=== PATIENT | male | born 1990 | race African-American/Black ===

== ENCOUNTER 2016-12-28 22:20 | Emergency (ER) | payer OTHER ==
[~2016-12-28 22:20] MED LIST: BACTRIM DS TABL1 TA1 PO; CALCIUM + VITAM1 TAB PO; CELLCEPT250 MG; ITRACONAZOLE100 MG PO; K-DUR20 ME1 PO; NAPROSYN250 M1 PO; NILSTAT; PERIDEX480 ML; PREDNISONE5 M1 PO; TACROLIMUS0.5 MG; VALCYTE450 MG PO
== END 2016-12-28 23:58 | disposition home or self-care (01) ==
LOC: CED 22:20
DX: K61.1 Rectal abscess (principal); F17.200 Nicotine dependence, unspecified, uncomplicated; Z94.1 Heart transplant status; Z88.8 Allergy status to other drugs, medicaments and biological substances
CPT/HCPCS: 10060; 96372; 99283; J2270

== ENCOUNTER 2017-01-04 22:33 | Emergency (ER) | payer OTHER ==
--- NOTE | ~2017-01-04 | US85 ---
[facility] A Service of [facility] RADIOLOGY TEXT RESULTS PATIENT: CLARICE HAWKINS LOCATION: [facility] : 90 UNIT #: [id number] AGE: [address]: Kaitlin Garcia MD SEX: M ORDER DR: [id number] [facility] [place], [place] [address] [id number] E MR#: [id number] Acc #: [id number] NAME: CLARICE HAWKINS : 1990 SEX: M STUDY DATE/TIME: 01/04/2017 21:25 UNIT: [place] ROOM: STUDY DESCRIPTION: [facility] Attending Physician: Kaitlin Garcia M.D. Ordering Physician: Kaitlin Garcia M.D. Primary Care Physician: Joseph Ramirez M.D. MEDICAL IMAGING REPORT This report is preliminary unless electronic signature is present EXAM Right lower extremity venous duplex. DATE OF EXAM 01/04/2017 HISTORY Right lower extremity pain in distal thigh and calf for one month. Evaluate for deep vein thrombosis. TECHNIQUE Venous ultrasound examination of the right lower extremity was performed using grayscale, spectral Doppler and color flow Doppler imaging. FINDINGS The examination is negative. There is no evidence of right lower extremity deep venous thrombus from the groin to the lower calf. Visualized greater saphenous vein is also patent. IMPRESSION Negative examination. No evidence of right lower extremity DVT. Dictated by... Andre Evans M.D. THIS IS AN ELECTRONICALLY VERIFIED REPORT Andre Evans M.D. at 01/05/2017 2:15 PM BAILEE/melinda [facility] A Service [facility] RADIOLOGY TEXT RESULTS PATIENT: CLARICE HAWKINS LOCATION: [place] : 90 UNIT #: [id number] AGE: [address]: Kaitlin Garcia MD SEX: M ORDER DR: TD: 01/04/2017 23:25 JOB #: [id number] MEDICAL IMAGING REPORT Page 1 of 1 COPY
--- NOTE | ~2017-01-04 | EKG ---
PATIENT: CLARICE HAWKINS UNIT #: [id number] Ventricular Rate: 98 BPM Atrial Rate: 98 BPM P-R Interval: 116 ms QRS Duration: 86 ms Q-T Interval: 448 ms QTC Calculation(Bezet): 571 ms P [place]: 93 degrees Calculated R [place]: 79 degrees Calculated T [place]: 87 degrees Diagnosis Line: Normal sinus rhythm Diagnosis Line: Nonspecific T wave abnormality Diagnosis Line: Borderline ECG Diagnosis Line: When compared with ECG of 29-MAR-2012 23:00, Diagnosis Line: Nonspecific T wave abnormality, worse in Inferior Diagnosis Line: leads Diagnosis Line: QT has lengthened Diagnosis Line: Confirmed by YINA HARDING MD ([id number]) on 01/05/2017 Diagnosis Line: 9:40:35 AM INTERPRETING MD: MEHDI NGUYEN
--- NOTE | ~2017-01-04 | CR72 ---
[facility] A Service of [facility] RADIOLOGY TEXT RESULTS PATIENT: CLARICE HAWKINS LOCATION: [facility] : 90 UNIT #: [id number] AGE: [address]: Kaitlin Garcia MD SEX: M ORDER DR: [id number] [facility] [address] [place], [place] [address] [id number] MR#: [id number] Acc #: [id number] NAME: CLARICE HAWKINS : 1990 SEX: M STUDY DATE/TIME: 01/04/2017 19:56 UNIT: [facility] ROOM: STUDY DESCRIPTION: CR Chest Single View Portable Attending Physician: Kaitlin Garcia M.D. Ordering Physician: Kaitlin Garcia M.D. Primary Care Physician: Joseph Ramirez M.D. MEDICAL IMAGING REPORT This report is preliminary unless electronic signature is present EXAM Portable chest 01/04/2017 HISTORY Fever and cough today with bilateral lower extremity swelling. FINDINGS The heart is enlarged but stable compared with 03/30/2012 status post median sternotomy and valvular replacement. The lungs are clear. There are no pleural effusions. IMPRESSION Stable cardiomegaly compared with 03/30/2012. No active pulmonary disease. Dictated by... Andre Evans M.D. THIS IS AN ELECTRONICALLY VERIFIED REPORT Andre Evans M.D. at 01/05/2017 2:14 PM KRT/pcl TD: 01/04/2017 22:30 JOB #: [id number] MEDICAL IMAGING REPORT Page 1 of 1 COPY
--- NOTE | ~2017-01-04 | CT4 ---
[facility] A Service of [facility] & [facility] RADIOLOGY TEXT RESULTS PATIENT: CLARICE HAWKINS LOCATION: [facility] : 90 UNIT #: [id number] AGE: [address]: Kaitlin Garcia MD SEX: M ORDER DR: [id number] [facility] [address] [place], [place] [address] [id number] E MR#: [id number] Acc #: [id number] NAME: CLARICE HAWKINS : 1990 SEX: M STUDY DATE/TIME: 01/04/2017 21:56 UNIT: [place] ROOM: STUDY DESCRIPTION: CT Abd and Pelv Wo Cont Attending Physician: Kaitlin Garcia M.D. Ordering Physician: Kaitlin Garcia M.D. Primary Care Physician: Joseph Ramirez M.D. MEDICAL IMAGING REPORT This report is preliminary unless electronic signature is present REVISED REPORT SEE ADDENDUM EXAM CT abdomen and pelvis without IV contrast. COMPARISON CT chest dated September 20, 2016. INDICATIONS 26-year-old male with generalized abdominal pain, nausea and emesis for 3 days. Left groin pain and left leg swelling. History of LVAD and heart transplant. FINDINGS Axial CT imaging of the abdomen and pelvis was performed without IV contrast. Coronal and sagittal reformats were constructed. Lack of IV contrast limits evaluation of adenopathy, vasculature and viscera. This CT exam was performed with one or more of the following radiation dose reduction techniques: Automatic exposure control, adjustment of mA and/or kV according to patient size, and iterative reconstruction. Median sternotomy is incompletely imaged. No evidence of sternal dehiscence. Focal density in the inferolateral left subcutaneous fat is stable from September 2016, where significant gynecomastia is seen. Small fat-containing midline superior abdominal wall hernia. There is subcutaneous edema in the left groin. There appears to be edematous lymph node in this location measuring up to 1.3 cm, short axis. Separate prominent left inguinal lymph node measures 9 mm, short axis. No acute fractures or suspicious osseous lesions. Akxkl-qf-mbrfgxxn posterior disc protrusion L4-L5. Cardiomegaly is noted. 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 There is atelectasis in the posterior lingula and lateral dependent left lower lobe. [facility] A Service of [facility] RADIOLOGY TEXT RESULTS PATIENT: CLARICE HAWKINS LOCATION: [place] : 90 UNIT #: [id number] AGE: [address]: Kaitlin Garcia MD SEX: M ORDER DR: Unenhanced liver and spleen are unremarkable. There is diffuse edema of the pancreas with extensive adjacent fat stranding. This fat stranding extends into the superior mesentery and extends down to the superior retroperitoneum to the level of the iliac arteries. Multiple indistinct retroperitoneal lymph nodes are also seen. There is trace amount of free fluid adjacent to the dome of the liver. There is also a small amount of free fluid layering in the superior right paracolic gutter. Fat stranding is also seen in the juan j hepatis and adjacent to the gallbladder, possibly secondary transmitted inflammatory change. An acute cholecystitis cannot entirely be excluded. No pneumoperitoneum. Adrenal glands, kidneys and urinary bladder are within normal limits. Prostate gland is within normal limits. There is no evidence of bowel obstruction. No evidence of acute appendicitis. It appears that retroperitoneal inflammatory change extends along the left psoas muscle and the iliopsoas into the inguinal region, and the stranding in the left groin is thought to be transmitted from the patient's acute pancreatitis. Small amount of free fluid in the pelvis. IMPRESSION 1. There is edema of the pancreas with extensive adjacent fat stranding of the pancreatic bed which extends down throughout the retroperitoneum and tracks along the left iliac vessels anterior to the psoas muscle and iliopsoas and into the left groin, where there is inflammatory change of the subcutaneous fat, and there are mildly enlarged lymph nodes, one of which appears edematous. This likely reflects secondary adenopathy/adenitis in the left groin. No convincing evidence of pancreatic necrosis at this time. No organizing fluid collection to suggest abscess. There is a small amount of free fluid in the abdomen and pelvis. There are also some indistinct lymph nodes in the retroperitoneum. Given the patient's history of transplant, lymphoma cannot be excluded. Also primary pancreatic neoplasm cannot be excluded. However, the acute clinical history would seem to be more in keeping with acute pancreatitis. Consider CT abdomen and pelvis followup with IV contrast in 3 months to document stability or regression of these findings. 2. The gallbladder appears indistinct and there is adjacent inflammatory change. This may reflect secondary inflammatory change of the gallbladder, but an acute cholecystitis cannot entirely be excluded. 3. Changes of cardiac transplant. Mild cardiomegaly with prior tricuspid valve replacement, grossly stable. Stable gynecomastia. 4. Small posterior disc protrusion L4-L5. Dictated by... Aries Cutler M.D. [facility] A Service of [facility] RADIOLOGY TEXT RESULTS PATIENT: CLARICE HAWKINS LOCATION: [facility] : 90 UNIT #: [id number] AGE: [address]: Kaitlin Garcia MD SEX: M ORDER DR: THIS IS AN ELECTRONICALLY VERIFIED REPORT Aries Cutler M.D. at 01/05/2017 4:02 PM BLM/psc TD: 01/05/2017 02:02 JOB #: [id number] ADDENDUM I personally called the office of Dr. Ramirez and spoke with Katrina, medical equipment repair technician, in his office on January 06, 2017. She states that this patient has not been seen by Dr. Ramirez since 2013. There is no other primary care physician of record in this patient's chart and I did discuss with Katrina the need for followup CT for this patient, in 3 months to reevaluate findings which may reflect sequela of an acute pancreatitis but given the patient's history of heart transplant, lymphoma or graft versus host disease cannot entirely be excluded and therefore followup CT is recommended in 3 months with IV contrast to reevaluate the abdomen and pelvis. In addition, I tried to place a call to the patient at the number listed in his face sheet but the voice mail is that of another person. ESPERANZA Herndon, in the office of Dr. Ramirez was notified that we will be faxing a copy of this report and recommendations to the office of Dr. Ramirez. Dictated by... Aries Cutler M.D. THIS IS AN ELECTRONICALLY VERIFIED REPORT Aries Cutler M.D. at 01/10/2017 6:10 PM ORLANDO/serena TD: 01/07/2017 14:12 JOB #: [id number] CC: Treva/purvi Please Delete MEDICAL IMAGING REPORT Page 1 of 1 COPY
[2017-01-04 20:09] LABS: ARTERIAL BLD GAS O2 SATURATION 96.4 % (90.0-100.0); ARTERIAL BLOOD GAS HCO3 26.9 mmol/L; ARTERIAL BLOOD GAS MET HB 0.8 %sat (0.0-2.0); ARTERIAL BLOOD GAS PCO2 21.6 mmHg (35.0-45.0); ARTERIAL BLOOD GAS PO2 95.9 mmHg (80.0-100)
[2017-01-04 20:11] LABS: ARTERIAL BLOOD GAS ART SITE RIGHT BRACHIAL; ARTERIAL BLOOD GAS DELIVERY ROOM AIR; ARTERIAL BLOOD GAS pH 7.704 (7.350-7.450); ARTERIAL DRAW? YES
[2017-01-04 20:37] LABS: INR 1.1; PARTIAL THROMBOPLASTIN TIME 30.5 SECONDS (23.5-31.3)
[2017-01-04 20:39] LABS: BASOPHIL% 0.2 % (0-2.5); EOSINOPHIL% 0.3 % (0.0-7.0); HEMATOCRIT 34.1 % (38.0-50.0); HEMOGLOBIN 11.3 gm/dL (13.0-16.0); LYMPHOCYTE# 0.2 X10e3 (1.0-3.5); LYMPHOCYTE% 1.4 % (17.0-45.0); MEAN CELL VOLUME 83.7 FL (83-96); MEAN CORPUSCULAR HEMOGLOBIN 27.9 PG (28-34); MEAN CORPUSCULAR HGB CONC 33.3 g/dL (30-36); MEAN PLATELET VOLUME 9.3 FL (6.5-11.5); MONOCYTE# 0.5 X10e3 (0-1.0); MONOCYTE% 3.1 % (3.0-12.0); PLATELET COUNT 117 X10e3 (140-420); RED BLOOD COUNT 4.07 X10e (3.90-5.60); RED CELL DISTRIBUTION WIDTH 14.8 % (11.0-15.5); WHITE BLOOD COUNT 15.7 X10e3 (4.0-10.5)
[2017-01-04 20:41] LABS: DIFF IND YES
[2017-01-04 20:48] LABS: ALBUMIN SERUM 3.9 g/dL (3.5-5.0); BILIRUBIN, DIRECT 0.4 mg/dL (0.0-0.2); BILIRUBIN,TOTAL 1.4 mg/dL (0.2-2.0); BUN/CREATININE RATIO 12.77; CALCIUM SERUM 8.6 mg/dL (8.4-10.2); CREATININE SERUM 1.8 mg/dL (0.6-1.4); GLOM FILT RATE Estimated 58.9 mL/min (>60); MAGNESIUM 1.4 mg/dL (1.6-3.0); PROTEIN TOTAL SERUM 7.3 g/dL (6.0-8.3)
[2017-01-04 20:51] LABS: POTASSIUM 2.7 mmol/L (3.5-5.1)
[2017-01-04 20:57] LABS: POC - CKMB <1.0 ng/mL (0.0-7.9); POC - TROPONIN <0.05 ng/mL (<=0.05)
[2017-01-04 20:58] LABS: PLATELET ESTIMATE NORMAL (NORMAL)
[2017-01-04 20:59] LABS: RBC NORMAL YES
[2017-01-04 22:51] LABS: URINE SOURCE CLEAN CATCH
[2017-01-04 23:02] LABS: URINE APPEARANCE CLEAR; URINE BILIRUBIN NEG (NEG); URINE BLOOD NEG (NEG); URINE COLOR YELLOW; URINE GLUCOSE NEG (NEG); URINE KETONE 1+ (NEG); URINE LEUKOCYTE ESTERASE NEG (NEG); URINE NITRATE NEG (NEG); URINE PH 6.5 (5-8); URINE PROTEIN NEG (NEG); URINE SPECIFIC GRAVITY 1.015 (1.003-1.035)
[2017-01-04 23:06] LABS: CULTURE INDICATED? NO
[2017-01-04 23:12] LABS: AMPHETAMINE NEG (NEG); BARBITURATES NEG (NEG); BENZODIAZEPINES NEG (NEG); COCAINE NEG (NEG); MARIJUANA POS (NEG); OPIATES NEG (NEG); TRICYCLIC ANTIDEPRESSANTS NEG (NEG); U METHADONE NEG (NEG)
[2017-01-04 23:38] LABS: LIPASE 17 U/L (22-51)
[2017-01-04 23:39] LABS: ALCOHOL BLOOD <5 mg/dL (0)
== END 2017-01-05 02:45 ==
LOC: CED 22:33
PROVIDERS: Student in an Organized Health Care Education/Training Program
DX: K85.90 Acute pancreatitis without necrosis or infection, unspecified (principal); E87.6 Hypokalemia; E83.41 Hypermagnesemia; N17.9 Acute kidney failure, unspecified; R59.1 Generalized enlarged lymph nodes; F12.10 Cannabis abuse, uncomplicated
CPT/HCPCS: 36415; 36600; 71010; 74176; 80048; 80076; 80307; 81003; 82553; 82803; 83605; 83690; 83735; 84484; 85025; 85610; 85730; 87040; 93005; 93971; 96365; 99285; G0480; J2185; J2405; J3475

== ENCOUNTER 2017-01-19 20:02 | Emergency (ER) | payer OTHER ==
--- NOTE | ~2017-01-19 | US85 ---
[facility] A Service of [facility] RADIOLOGY TEXT RESULTS PATIENT: CLARICE HAWKINS LOCATION: [facility] : 90 UNIT #: [id number] AGE: [address]: Supa Guaman MD SEX: M ORDER DR: [id number] [facility] [address] [place], [place] [address] [id number] E MR#: [id number] Acc #: [id number] NAME: CLARICE HAWKINS : 1990 SEX: M STUDY DATE/TIME: 01/19/2017 22:51 UNIT: [place] ROOM: STUDY DESCRIPTION: [facility] or [facility] Stdy Attending Physician: Supa Guaman M.D. Ordering Physician: Supa Guaman M.D. Primary Care Physician: Primary Care Physician No MEDICAL IMAGING REPORT This report is preliminary unless electronic signature is present EXAM Left leg vein Doppler, 01/19 22:51 INDICATIONS Leg pain and swelling for 2 weeks. TECHNIQUE Venous ultrasound examination of the left lower extremity was performed using grayscale, spectral Doppler and color flow Doppler imaging. FINDINGS The examination is negative. There is no evidence of left lower extremity deep venous thrombus from the groin to the lower calf. Visualized greater saphenous vein is also patent. IMPRESSION Negative examination. No evidence of left lower extremity deep venous thrombosis. Dictated by... Damian Barajas Jr., M.D. THIS IS AN ELECTRONICALLY VERIFIED REPORT Damian Barajas Jr., M.D. at 01/20/2017 10:12 PM SINDHU/adrian TD: 01/19/2017 23:46 JOB #: [id number] MEDICAL IMAGING REPORT Page 1 of 1 COPY
[2017-01-20 00:47] LABS: BASOPHIL% 0.9 % (0-2.5); EOSINOPHIL# 0.3 X10e3 (0-0.7); HEMATOCRIT 32.4 % (38.0-50.0); HEMOGLOBIN 10.8 gm/dL (13.0-16.0); LYMPHOCYTE# 1.5 X10e3 (1.0-3.5); LYMPHOCYTE% 26.6 % (17.0-45.0); MEAN CELL VOLUME 83.1 FL (83-96); MEAN CORPUSCULAR HEMOGLOBIN 27.7 PG (28-34); MEAN CORPUSCULAR HGB CONC 33.3 g/dL (30-36); MEAN PLATELET VOLUME 8.4 FL (6.5-11.5); MONOCYTE# 0.4 X10e3 (0-1.0); MONOCYTE% 7.2 % (3.0-12.0); NEUTROPHIL# 3.4 X10e3 (1.5-7.1); NEUTROPHIL% 59.3 % (40-75); PLATELET COUNT 139 X10e3 (140-420); RED CELL DISTRIBUTION WIDTH 14.7 % (11.0-15.5); WHITE BLOOD COUNT 5.7 X10e3 (4.0-10.5)
[2017-01-20 00:48] LABS: DIFF IND NO
[2017-01-20 01:08] LABS: ALBUMIN SERUM 3.3 g/dL (3.5-5.0); BILIRUBIN, DIRECT 0.2 mg/dL (0.0-0.2); BILIRUBIN,INDIRECT 0.2 mg/dL (0.0-0.9); BILIRUBIN,TOTAL 0.4 mg/dL (0.2-2.0); BUN/CREATININE RATIO 14.44; CALCIUM SERUM 8.8 mg/dL (8.4-10.2); CREATININE SERUM 1.8 mg/dL (0.6-1.4); GLOM FILT RATE Estimated 58.9 mL/min (>60); POTASSIUM 3.1 mmol/L (3.5-5.1); PROTEIN TOTAL SERUM 6.6 g/dL (6.0-8.3)
== END 2017-01-20 02:05 | disposition home or self-care (01) ==
LOC: CED 20:02
PROVIDERS: Emergency Medicine
DX: R60.0 Localized edema (principal); F17.200 Nicotine dependence, unspecified, uncomplicated; Z88.6 Allergy status to analgesic agent; Z91.041 Radiographic dye allergy status
CPT/HCPCS: 36415; 80048; 80076; 85025; 85379; 85652; 93971; 99284

== ENCOUNTER 2017-02-27 22:43 | Emergency (ER) | payer OTHER ==
--- NOTE | ~2017-02-27 | CR72 ---
[facility] A Service of [facility] RADIOLOGY TEXT RESULTS PATIENT: CLARICE HAWKINS LOCATION: [facility] : 90 UNIT #: [id number] AGE: [address]: Andi Mendenhall MD SEX: M ORDER DR: [id number] [place], [place] [address] [id number] E MR#: [id number] Acc #: [id number] NAME: CLARICE HAWKINS : 1990 SEX: M STUDY DATE/TIME: 02/27/2017 23:32 UNIT: [place] ROOM: STUDY DESCRIPTION: CR Chest Single View Portable Attending Physician: Andi Mendenhall M.D. Ordering Physician: Andi Mendenhall M.D. Primary Care Physician: Primary Care Physician No MEDICAL IMAGING REPORT This report is preliminary unless electronic signature is present EXAM Portable chest INDICATION Chest pain for the past few months. Worse today. PROCEDURE Frontal view chest. COMPARISON 01/04/2017 FINDINGS Stable cardiomegaly. No new dense consolidation. No visible pleural fluid or pneumothorax. IMPRESSION Stable cardiomegaly. No change from 01/04/2017. Dictated by... Flaco Rothman M.D. THIS IS AN ELECTRONICALLY VERIFIED REPORT Flaco Rothman M.D. at 02/28/2017 10:02 PM EED/sheryl TD: 02/28/2017 00:31 JOB #: [id number] MEDICAL IMAGING REPORT [facility] A Service of [facility] RADIOLOGY TEXT RESULTS PATIENT: CLARICE HAWKINS LOCATION: [facility] : 90 UNIT #: [id number] AGE: [address]: Andi Mendenhall MD SEX: M ORDER DR: Page 1 of 1 COPY
--- NOTE | ~2017-02-27 | EKG ---
PATIENT: CLARICE HAWKINS UNIT #: [id number] Ventricular Rate: 80 BPM Atrial Rate: 80 BPM P-R Interval: 122 ms QRS Duration: 92 ms Q-T Interval: 416 ms QTC Calculation(Bezet): 479 ms P [place]: 72 degrees Calculated R [place]: 60 degrees Calculated T [place]: 97 degrees Diagnosis Line: Normal sinus rhythm Diagnosis Line: Nonspecific T wave abnormality Diagnosis Line: Abnormal ECG Diagnosis Line: When compared with ECG of 04-JAN-2017 20:00, Diagnosis Line: QT has shortened Diagnosis Line: Confirmed by ANTONIO LY MD ([id number]) on 03/01/2017 Diagnosis Line: 5:37:33 AM INTERPRETING MD: MALACHI NGUYEN
[2017-02-28 00:37] LABS: POC - CKMB <1.0 ng/mL (0.0-7.9); POC - TROPONIN <0.05 ng/mL (<=0.05)
[2017-02-28 01:35] LABS: BASOPHIL% 0.9 % (0-2.5); DIFF IND NO; EOSINOPHIL# 0.6 X10e3 (0-0.7); EOSINOPHIL% 15.1 % (0.0-7.0); HEMATOCRIT 29.2 % (38.0-50.0); HEMOGLOBIN 9.7 gm/dL (13.0-16.0); LYMPHOCYTE# 1.1 X10e3 (1.0-3.5); LYMPHOCYTE% 25.7 % (17.0-45.0); MEAN CELL VOLUME 83.8 FL (83-96); MEAN CORPUSCULAR HGB CONC 33.4 g/dL (30-36); MEAN PLATELET VOLUME 8.7 FL (6.5-11.5); MONOCYTE# 0.3 X10e3 (0-1.0); MONOCYTE% 8.1 % (3.0-12.0); NEUTROPHIL# 2.1 X10e3 (1.5-7.1); NEUTROPHIL% 50.2 % (40-75); PLATELET COUNT 101 X10e3 (140-420); RED BLOOD COUNT 3.48 X10e (3.90-5.60); WHITE BLOOD COUNT 4.2 X10e3 (4.0-10.5)
[2017-02-28 01:50] LABS: INR 1.1; PARTIAL THROMBOPLASTIN TIME 28.6 SECONDS (23.5-31.3)
[2017-02-28 02:07] LABS: ALBUMIN SERUM 3.7 g/dL (3.5-5.0); BILIRUBIN, DIRECT 0.1 mg/dL (0.0-0.2); BILIRUBIN,INDIRECT 0.4 mg/dL (0.0-0.9); BILIRUBIN,TOTAL 0.5 mg/dL (0.2-2.0); BUN/CREATININE RATIO 10.83; CALCIUM SERUM 8.8 mg/dL (8.4-10.2); CREATININE SERUM 1.2 mg/dL (0.6-1.4); GLOM FILT RATE Estimated 96.2 mL/min (>60); MAGNESIUM 1.8 mg/dL (1.6-3.0); POTASSIUM 3.4 mmol/L (3.5-5.1); PROTEIN TOTAL SERUM 6.9 g/dL (6.0-8.3)
[2017-02-28 04:51] LABS: POC - CKMB <1.0 ng/mL (0.0-7.9); POC - TROPONIN <0.05 ng/mL (<=0.05)
== END 2017-02-28 07:39 | disposition short-term general hospital (02) ==
LOC: CED 22:43
PROVIDERS: Emergency Medicine
DX: Z94.1 Heart transplant status (principal); M79.89 Other specified soft tissue disorders; Z88.7 Allergy status to serum and vaccine; Z88.8 Allergy status to other drugs, medicaments and biological substances
CPT/HCPCS: 36415; 71010; 80048; 80076; 82553; 83735; 83880; 84484; 85025; 85610; 85730; 93005; 99285